=== PATIENT | female | born 1950 | race Caucasian/White ===

== ENCOUNTER 2021-12-25 06:04 | Day surgery (SDC) | payer OTHER ==
[2021-12-25 06:35] VITALS: BMI 47.2
[2021-12-25] MEDS ORDERED: EPINEPHrine 1:1,000 1,000 MCG/ML ML ONE (07:13)
[2021-12-25] MEDS ORDERED: BUPIVACAINE HCL/PF 2.5 MG/ML - 30 ML VIAL IJ ONE (07:13)
[2021-12-25] MEDS ORDERED: PROPOFOL 40 ML ONE (07:27)
[2021-12-25] MEDS ORDERED: MIDAZOLAM HCL 2 MG/2 ML SINGLE DOSE VIAL ONE (07:28)
[2021-12-25] MEDS ORDERED: LIDOCAINE HCL/PF 2% SDV 5ML VIAL ONE (08:08)
[2021-12-25] MEDS ORDERED: oxyCODONE HCL 5 MG TABLET PO PRN ×2 (08:40)
[2021-12-25] MEDS ORDERED: ONDANSETRON 4 MG/2 ML VIAL IVPUSH PRN (08:40)
[2021-12-25] MEDS ORDERED: PROMETHAZINE HCL 25 MG/1 ML VIAL IVPUSH PRN (08:40)
[2021-12-25] MEDS ORDERED: FENTANYL CITRATE/PF 50 MCG/ML VIAL ONE ×3 (08:40→08:59)
[2021-12-25] MEDS ORDERED: oxyCODONE HCL 5 MG TABLET PO ONE (09:35)
[2021-12-25] MEDS ORDERED: oxyCODONE HCL 5 MG TABLET ONE (09:39)
[2021-12-25 09:54] VITALS: RESP 18; TEMP 97.6
[2021-12-25 10:26] VITALS: BP 122/52; PULSE 96
== END 2021-12-25 10:20 | disposition home or self-care (01) ==
LOC: FASUSAT 06:04
PROVIDERS: ATTEND Orthopaedic Surgery
PROC: 0SBD4ZZ Excision of Left Knee Joint, Percutaneous Endoscopic Approach (ICD-10-PCS; principal; 2021-12-25 08:05)
DX: S83.242A Other tear of medial meniscus, current injury, left knee, initial encounter (principal); S83.282A Other tear of lateral meniscus, current injury, left knee, initial encounter; S83.8X2A Sprain of other specified parts of left knee, initial encounter; M65.862 Other synovitis and tenosynovitis, left lower leg; X58.XXXA Exposure to other specified factors, initial encounter; Y93.9 Activity, unspecified; Y92.9 Unspecified place or not applicable
CPT/HCPCS: 82962; 94760